=== PATIENT | male | born 2000 | race African-American/Black ===

== ENCOUNTER 2021-10-19 10:23 | Emergency (ER) | payer OTHER ==
[~2021-10-19] VITALS: Ht 172.7 cm; Wt 72.7 kg
[2021-10-19 11:28] VITALS: TEMP 98.3
[2021-10-19 12:21] VITALS: BP 133/83
[2021-10-19 13:11] VITALS: PULSE 58
== END 2021-10-19 13:13 | disposition home or self-care (01) ==
LOC: COL.ER 10:23
DX: G51.0 Bell's palsy (principal)